=== PATIENT | female | born 1940 | race Caucasian/White ===

== ENCOUNTER 2017-07-14 13:02 | Emergency (ER) | payer MEDICARE, OTHER | END 2017-07-14 15:00 | disposition home or self-care (01) | LOC: FTE 13:02 | DX: L30.9 Dermatitis, unspecified (principal); I10 Essential (primary) hypertension; E11.9 Type 2 diabetes mellitus without complications; Z79.82 Long term (current) use of aspirin | CPT/HCPCS: 99283 ==